=== PATIENT | male | born 2005 | race Caucasian/White ===

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

== ENCOUNTER 2024-04-12 12:21 | Emergency (ER) | payer BC ==
[~2024-04-12] VITALS: Ht 182.9 cm; Wt 99.8 kg
[~2024-04-12 12:21] MED LIST changes: +ACETAMINOPHEN500 MG PO; +IBU800 MG PO
[2024-04-12 12:39] VITALS: BP 158/94
[2024-04-12 13:55] LABS: BASOPHILS ABSOLUTE AUTO 0.04 K/mm3 (0.00-0.23); BASOPHILS PERCENT AUTO 1 % (0-2); EOSINOPHILS PERCENT AUTO 5 % (0-6); Hematocrit 47.8 % (37.0-53.0); Hemoglobin 17.1 g/dL (13.5-17.5); IMMATURE GRAN ABSOLUTE AUTO 0.02 K/mm3 (0.00-0.10); IMMATURE GRAN PERCENT AUTO 0 % (0-1); LYMPHOCYTES ABSOLUTE AUTO 1.55 K/mm3 (0.84-5.20); LYMPHOCYTES PERCENT AUTO 25 % (21-46); MONOCYTES ABSOLUTE AUTO 0.57 K/mm3 (0.16-1.47); MONOCYTES PERCENT AUTO 9 % (4-13); Mean Corpuscular HGB 30.1 pg (26.0-34.0); Mean Corpuscular HGB Conc 35.8 g/dL (31.5-36.5); Mean Corpuscular Volume 84 fL (80-100); Mean Platelet Volume 9.7 fL (9.1-12.4); NEUTROPHILS ABSOLUTE AUTO 3.69 K/mm3 (1.96-9.15); NEUTROPHILS PERCENT AUTO 60 % (41-73); Platelet Count 280 K/mm3 (150-400); RDW Coefficient Variation 12.3 % (11.7-14.2); RDW Standard Deviation 37.2 fL (35.1-46.3); Red Blood Cell Count 5.68 M/mm3 (4.30-5.90); White Blood Cell Count 6.17 K/mm3 (4.00-11.30)
[2024-04-12 14:00] LABS: Albumin, Blood 4.5 g/dL (3.4-5.0); Albumin/Globulin Ratio 1.3 (0.8-1.8); Bilirubin, Total 0.8 mg/dL (0.1-1.0); Bun/Creatinine Ratio 15.9 (12.0-20.0); Calcium, Blood 9.6 mg/dL (8.5-10.1); Creatinine, Blood 0.63 mg/dL (0.60-1.20); Globulin, Blood 3.5 g/dL (2.2-4.0); Potassium, Blood 4.2 mmol/L (3.5-5.5)
[2024-04-12] MEDS ORDERED: Fluorescein Sod 1MG Opth Strips RIGHTEYE ONE (14:25)
[2024-04-12] MEDS ORDERED: Proparacaine 0.5% Opth Soln 15 ML BTL RIGHTEYE ONE (14:30)
== END 2024-04-12 15:54 | disposition home or self-care (01) ==
LOC: ER 12:21
PROVIDERS: Emergency Medicine
DX: H11.31 Conjunctival hemorrhage, right eye (principal); F17.290 Nicotine dependence, other tobacco product, uncomplicated; Z59.89 Other problems related to housing and economic circumstances; W50.0XXA Accidental hit or strike by another person, initial encounter; Y93.72 Activity, wrestling
CPT/HCPCS: 70480; 80053; 85025; 99283-25; A9270; A9270-GY

== ENCOUNTER 2024-06-02 19:52 | Emergency (ER) | payer BC ==
[~2024-06-02] VITALS: Ht 182.9 cm; Wt 99.8 kg
[2024-06-02 20:10] VITALS: BP 149/86
[2024-06-02] MEDS ORDERED: Amoxicillin/Clavulanate K 875 MG Tab PO ONE (20:15)
[2024-06-02] MEDS ORDERED: AMOCLA875 PO (20:16)
== END 2024-06-02 20:26 | disposition home or self-care (01) ==
LOC: ER 19:52
DX: S61.250A Open bite of right index finger without damage to nail, initial encounter (principal); L08.9 Local infection of the skin and subcutaneous tissue, unspecified; S60.811A Abrasion of right wrist, initial encounter; F17.290 Nicotine dependence, other tobacco product, uncomplicated; W55.01XA Bitten by cat, initial encounter; W55.03XA Scratched by cat, initial encounter
CPT/HCPCS: 99283; A9270

== ENCOUNTER 2025-02-03 15:29 | Inpatient (IN) | payer OTHER, BC ==
[~2025-02-03] VITALS: Ht 185.4 cm; Wt 97.0 kg
[~2025-02-03 15:29] MED LIST changes: +AMOCLA875 PO
[2025-02-03] MEDS ORDERED: Ketorolac Tromethamine 15mg Vial IV ONE (16:05)
[2025-02-03] MEDS ORDERED: Ondansetron HCl 2 MG / ML 2ML Vial IV ONE (16:05)
[2025-02-03] MEDS ORDERED: HYDROmorphone HCl/Pf 1MG SYR IV ONE ×3 (16:05→20:00)
[2025-02-03 16:23] LABS: BASOPHILS ABSOLUTE AUTO 0.05 K/mm3 (0.00-0.23); BASOPHILS PERCENT AUTO 0 % (0-2); EOSINOPHILS ABSOLUTE AUTO 0.12 K/mm3 (0.00-0.68); EOSINOPHILS PERCENT AUTO 1 % (0-6); Hematocrit 46.9 % (37.0-53.0); Hemoglobin 16.9 g/dL (13.5-17.5); IMMATURE GRAN ABSOLUTE AUTO 0.06 K/mm3 (0.00-0.10); IMMATURE GRAN PERCENT AUTO 0 % (0-1); LYMPHOCYTES ABSOLUTE AUTO 1.60 K/mm3 (0.84-5.20); LYMPHOCYTES PERCENT AUTO 11 % (21-46); MONOCYTES ABSOLUTE AUTO 1.41 K/mm3 (0.16-1.47); MONOCYTES PERCENT AUTO 9 % (4-13); Mean Corpuscular HGB Conc 36.0 g/dL (31.5-36.5); Mean Corpuscular Volume 85 fL (80-100); NEUTROPHILS ABSOLUTE AUTO 11.96 K/mm3 (1.96-9.15); NEUTROPHILS PERCENT AUTO 79 % (41-73); NRBC ABSOLUTE 0.00 K/mm3 (0.00-0.02); NRBC Auto 0.0 /100 WBC (0.0-0.2); Platelet Count 259 K/mm3 (150-400); RDW Coefficient Variation 12.1 % (11.7-14.2); RDW Standard Deviation 37.1 fL (35.1-46.3)
[2025-02-03 16:56] LABS: C-REACTIVE PROTEIN, EXT RANGE 12.6 mg/dL (0.000-0.300)
[2025-02-03 16:59] LABS: Prothrombin Time Results 13.6 Sec (9.7-11.5)
[2025-02-03 17:02] LABS: Alanine Aminotransfer (ALT/SGP 61.0 U/L (12-78); Albumin, Blood 3.9 g/dL (3.4-5.0); Albumin/Globulin Ratio 1.0 (0.8-1.8); Anion Gap 9.0 mmol/L (3-11); Aspartate Aminotrans (AST/SGOT 20.0 U/L (12-37); Bilirubin, Total 1.4 mg/dL (0.1-1.0); Blood Urea Nitrogen 10.0 mg/dL (8-24); CO2, Blood 26.0 mmol/L (21-32); Calcium, Blood 9.6 mg/dL (8.5-10.1); Chloride, Blood 99.0 mmol/L (98-108); Creatinine, Blood 0.66 mg/dL (0.60-1.20); Globulin, Blood 3.9 g/dL (2.2-4.0); Glucose, Blood 112.0 mg/dL (70-99); Potassium, Blood 3.9 mmol/L (3.5-5.5); Sodium, Blood 130.0 mmol/L (136-145); Total Protein, Blood 7.8 g/dL (6.4-8.2)
[2025-02-03] MEDS ORDERED: NS 1,000 ML IV SCH ×2 (17:20→19:20)
[2025-02-03] MEDS ORDERED: Vancomycin (Pharmacy Consult) IV PRN (17:20)
[2025-02-03] MEDS ORDERED: Metoclopramide HCl 5MG / ML 2ML Vial IV PRN (19:20)
[2025-02-03] MEDS ORDERED: Ondansetron HCl 2 MG / ML 2ML Vial IV PRN (19:20)
[2025-02-03] MEDS ORDERED: Vancomycin (Pharmacy Consult) IV SCH (19:20)
[2025-02-03] MEDS ORDERED: OxyCODONE 5 mg/Acetamin 325 mg TABLET PO PRN (19:25)
[2025-02-03] MEDS ORDERED: HYDROmorphone HCl/Pf 1MG SYR IV PRN (19:25)
[2025-02-03] MEDS ORDERED: CeFAZolin Sodium 2,000 MG in NS 100 ML IV SCH (20:00)
[2025-02-03] MEDS ORDERED: DiphenhydrAMINE HCl 50 MG/ML 1ML Vial IV ONE (20:20)
[2025-02-03] MEDS ORDERED: FentaNYL Citrate 50 MCG/ML 2 ML Injection IV PRN (20:40)
[2025-02-03] MEDS ORDERED: Clindamycin 900mg in D5W 50ML 50 ML IV SCH (21:00)
[2025-02-03] MEDS ORDERED: Lactobacil 2-S.Thermo-Bifido 1 1 Cap PO SCH (21:00)
[2025-02-03 21:58] VITALS: BP 156/88
--- NOTE | 2025-02-03 22:15 | NUR ---
ARRIVAL TO SURGICAL UNIT ROOM 210 AT 2153. PT AMBULATORY FROM GURNEY TO BED. PT A/O X4 WITH FAMILY PRESENT AT BEDSIDE. PT REPORTS PAIN 9/10 TO LEFT THIGH AGGRAVATED BY MOVEMENT. ORIENTED TO ROOM, UNIT, AND CALL LIGHT. EDUCATION PROVIDED ON FALL PREVENTION, AND POLICIES. PT VAPES BUT DENIES IGNITION SOURCES ON PERSON. CALL LIGHT IN REACH.
[2025-02-03] MEDS ORDERED: PROBIOTIC1 EA13 PO (22:26)
--- NOTE | 2025-02-03 23:09 | NUR ---
TELEPHONE UPDATE ON PATIENT STATUS GIVEN TO DR. RIOS.
--- NOTE | 2025-02-04 | NUR ---
LLE MEASUREMENTS AT 2330. PROXIMAL THIGH: 22.25 INCHES, SUPERIOR KNEE: 19.5 INCHES.
[2025-02-04 04:38] VITALS: BP 139/76
[2025-02-04 05:08] LABS: Hematocrit 43.0 % (37.0-53.0); Hemoglobin 15.2 g/dL (13.5-17.5); Mean Corpuscular HGB Conc 35.3 g/dL (31.5-36.5); Mean Corpuscular Volume 87 fL (80-100); NRBC ABSOLUTE 0.02 K/mm3 (0.00-0.02); NRBC Auto 0.2 /100 WBC (0.0-0.2); Platelet Count 208 K/mm3 (150-400); RDW Coefficient Variation 12.3 % (11.7-14.2); RDW Standard Deviation 38.5 fL (35.1-46.3)
--- NOTE | 2025-02-04 05:23 | NUR ---
SHIFT SUMMARY NOC. PT A/OX4 AND MAKES NEEDS KNOWN. PT'S LEFT THIGH CONTINUES TO BE RED AND SWOLLEN, REDNESS REMAINS WITHIN MARKED MARGINS. PT MEDICATED FOR PAIN PER EMAR WITH REPORTED RELIEF OF SX. PT NPO SINCE 0000 ASIDE FROM SMALL SIP OF WATER WITH ORAL PAIN MEDICATION. FLUIDS AND ABX RUNNING PER EMAR. PT DENIES "HEAD SWELLING" AND DENIES ITCHING AFTER ADVERSE REACTION TO VANCO IN ER. MEASUREMENTS FOR LLE AT 0430: PROXIMAL THIGH 22.25 INCHES AND SUPERIOR KNEE AT 19.25 INCHES. PULSES AND SENSATION INTACT. CALL LIGHT IN REACH.
[2025-02-04 05:26] LABS: Prothrombin Time Results 13.7 Sec (9.7-11.5)
[2025-02-04 05:31] LABS: Anion Gap 9.0 mmol/L (3-11); Blood Urea Nitrogen 8.0 mg/dL (8-24); CO2, Blood 24.0 mmol/L (21-32); Calcium, Blood 8.4 mg/dL (8.5-10.1); Chloride, Blood 105.0 mmol/L (98-108); Creatinine, Blood 0.62 mg/dL (0.60-1.20); Glucose, Blood 100.0 mg/dL (70-99); Potassium, Blood 4.1 mmol/L (3.5-5.5); Sodium, Blood 134.0 mmol/L (136-145)
--- NOTE | 2025-02-04 07:57 | NUR ---
MEASUREMENT OF LEFT THIGH UPPER AREA 21 1/4 IN LOWER LINE 18 3/4 IN
[2025-02-04 08:09] VITALS: BP 151/86
--- NOTE | 2025-02-04 12:05 | NUR ---
THIGH MEASUREMENT UPPER AREA 21 1/2 LOWER AREA 19
[2025-02-04 12:15] VITALS: BP 143/70
[2025-02-04 14:30] VITALS: BP 144/76
--- NOTE | 2025-02-04 15:38 | NUR ---
THIGH MEASUREMENT UPPER THIGH 21 LOWER AREA 19
--- NOTE | 2025-02-04 15:53 | NUR ---
SHIFT SUMMARY PATIENT IS AOX4, IND IN ROOM. LEFT THIGH WITH OUTLINED REDDNESS AND SWELLING. MEASUREMENTS Q4 PER ORDER. WOUND SWAB SENT PER ORDER. NO SURGERY TODAY TOLERATING PO INTAKE. USES URINAL IND. MEDICATED FOR PAIN PER EMAR. VSS. ABLE TO MAKE NEEDS. KNOWN.
[2025-02-04] MEDS ORDERED: Cefepime HCl 2,000 MG in NS 100 ML IV SCH (18:00)
[2025-02-04 19:40] VITALS: BP 142/79
[2025-02-04] MEDS ORDERED: Morphine Sulfate 4 MG/1 ML Injection IV PRN (22:25)
--- NOTE | 2025-02-04 22:30 | NUR ---
THIGH MEASUREMENT FOR 1999 UPPER 21.75" LOWER 19"
--- NOTE | 2025-02-05 00:34 | NUR ---
THIGH MEASURMENT FOR 0000 UPPER 22" LOWER 19"
[2025-02-05 05:16] VITALS: BP 139/67
[2025-02-05 05:32] LABS: BASOPHILS ABSOLUTE AUTO 0.04 K/mm3 (0.00-0.23); BASOPHILS PERCENT AUTO 0 % (0-2); EOSINOPHILS ABSOLUTE AUTO 0.29 K/mm3 (0.00-0.68); EOSINOPHILS PERCENT AUTO 3 % (0-6); Hematocrit 42.4 % (37.0-53.0); Hemoglobin 15.2 g/dL (13.5-17.5); IMMATURE GRAN ABSOLUTE AUTO 0.04 K/mm3 (0.00-0.10); IMMATURE GRAN PERCENT AUTO 0 % (0-1); LYMPHOCYTES ABSOLUTE AUTO 2.21 K/mm3 (0.84-5.20); LYMPHOCYTES PERCENT AUTO 23 % (21-46); MONOCYTES ABSOLUTE AUTO 1.12 K/mm3 (0.16-1.47); MONOCYTES PERCENT AUTO 12 % (4-13); Mean Corpuscular HGB Conc 35.8 g/dL (31.5-36.5); Mean Corpuscular Volume 86 fL (80-100); NEUTROPHILS ABSOLUTE AUTO 5.80 K/mm3 (1.96-9.15); NEUTROPHILS PERCENT AUTO 61 % (41-73); NRBC ABSOLUTE 0.00 K/mm3 (0.00-0.02); NRBC Auto 0.0 /100 WBC (0.0-0.2); Platelet Count 237 K/mm3 (150-400); RDW Coefficient Variation 12.2 % (11.7-14.2); RDW Standard Deviation 38.2 fL (35.1-46.3)
--- NOTE | 2025-02-05 05:38 | NUR ---
THIGH MEASURMENT FOR 0400 UPPER 21.75" LOWER 19"
--- NOTE | 2025-02-05 05:40 | NUR ---
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 PT QUITE PAINFUL WITH AMBULATION, MINIMAL PAIN RELIEF WITH PO PERCOCET AND IV FENTANYL. ORDER OBTAINED FROM HOSPITALIST FOR IV MORPHINE AND THAT HAS DONE MUCH BETTER MANAGING PAIN, BRINGING PAIN LEVELS FROM 8/10 DOWN TO 2/10 FAIRLY QUICKLY. L INNER THIGH WITH SWELLING, MEASURING 21.5-22" ON THE UPPER SECTION AND 19" ON LOWER. AREA AROUND SWELLING LIGHT PINK WHICH IS MUCH IMPROVED PER PT AND DAY SHIFT RN. CONTINUING IV ABX, BLOOD CULTURES PENDING. VSS, WCTM.
[2025-02-05 06:14] LABS: Alanine Aminotransfer (ALT/SGP 37.0 U/L (12-78); Albumin, Blood 3.1 g/dL (3.4-5.0); Albumin/Globulin Ratio 0.8 (0.8-1.8); Anion Gap 9.0 mmol/L (3-11); Aspartate Aminotrans (AST/SGOT 17.0 U/L (12-37); Bilirubin, Total 0.8 mg/dL (0.1-1.0); Blood Urea Nitrogen 8.0 mg/dL (8-24); CO2, Blood 27.0 mmol/L (21-32); Calcium, Blood 8.7 mg/dL (8.5-10.1); Chloride, Blood 101.0 mmol/L (98-108); Creatinine, Blood 0.7 mg/dL (0.60-1.20); Globulin, Blood 3.8 g/dL (2.2-4.0); Glucose, Blood 94.0 mg/dL (70-99); Potassium, Blood 4.2 mmol/L (3.5-5.5); Sodium, Blood 133.0 mmol/L (136-145); Total Protein, Blood 6.9 g/dL (6.4-8.2)
[2025-02-05 07:24] VITALS: BP 148/70
--- NOTE | 2025-02-05 09:01 | NUR ---
LEG MEASUEREMENTS IN CIRCUMFERENCE UPPER SECTION: 21.75 LOWER SECTION: 19.75
--- NOTE | 2025-02-05 12:14 | NUR ---
LEG MEASUREMENT UPPER MEASUREMENT:23IN LOWER MEASUREMENT: 20IN
[2025-02-05] MEDS ORDERED: OxyCODONE 5 mg/Acetamin 325 mg TABLET PO PRN (14:15)
[2025-02-05 15:11] VITALS: BP 140/79
--- NOTE | 2025-02-05 15:57 | NUR ---
LEG MEASUREMENT UPPER MEASUREMENT:22.5IN LOWER MEASUREMENT: 19.75IN
--- NOTE | 2025-02-05 18:16 | NUR ---
SUMMARY NO ACUTE CHANGES THIS SHIFT. Q4 LEG CIRCUMFERENCE CHECKS MARGINALLY UNCHANGED BUT A LARGE DECREASE IN VISIBLE REDNESS NOTED TO L LEG - DRESSING CHANGED TI ALLOW FOR BETTER VISUALIZATION WELL. TOWARDS END OF SHIFT, ICE APPLIED AND TOMY WRAP APPLIED FOR PRESSURE - PER DR RIOS - PT STATES ICE DIDN'T HEP BUT THE TOMY WRAP HAS ALONGSIDE CONSISTENT PAIN MEDICATION ADMINISTRATION. IV FLUIDS INFUSING T/O SHIFT. PLAN FOR NPO TONIGHT JUST IN CASE PT NEEDS NEEDLE ASPIRATION TOMORROW - PT AWARE - PLAN MADE BY DR RIOS. OTHERWISE, PT TOELRATING PO INTAKE WELL. VSS. TALKING WITH FAMILY T/O SHIFT IN ROOM.
[2025-02-05 19:22] VITALS: BP 120/79
[2025-02-05] MEDS ORDERED: NS 250 ML IV PRN (19:35)
--- NOTE | 2025-02-06 02:19 | NUR ---
THIGH MEASUREMENT FOR 0000 UPPER 22.5" LOWER 19.5"
--- NOTE | 2025-02-06 02:19 | NUR ---
THIGH MEASUREMENT FOR 1999 UPPER 22" LOWER 19.5"
--- NOTE | 2025-02-06 06:09 | NUR ---
THIGH MEASUREMENT FOR 0400 UPPER 22" LOWER 19.75"
[2025-02-06 06:14] VITALS: BP 120/73
[2025-02-06 06:41] LABS: BASOPHILS ABSOLUTE AUTO 0.04 K/mm3 (0.00-0.23); BASOPHILS PERCENT AUTO 1 % (0-2); EOSINOPHILS ABSOLUTE AUTO 0.45 K/mm3 (0.00-0.68); EOSINOPHILS PERCENT AUTO 5 % (0-6); Hematocrit 41.7 % (37.0-53.0); Hemoglobin 15.0 g/dL (13.5-17.5); IMMATURE GRAN ABSOLUTE AUTO 0.02 K/mm3 (0.00-0.10); IMMATURE GRAN PERCENT AUTO 0 % (0-1); LYMPHOCYTES ABSOLUTE AUTO 1.78 K/mm3 (0.84-5.20); LYMPHOCYTES PERCENT AUTO 22 % (21-46); MONOCYTES ABSOLUTE AUTO 0.99 K/mm3 (0.16-1.47); MONOCYTES PERCENT AUTO 12 % (4-13); Mean Corpuscular HGB Conc 36.0 g/dL (31.5-36.5); Mean Corpuscular Volume 86 fL (80-100); NEUTROPHILS ABSOLUTE AUTO 4.98 K/mm3 (1.96-9.15); NEUTROPHILS PERCENT AUTO 60 % (41-73); NRBC ABSOLUTE 0.00 K/mm3 (0.00-0.02); NRBC Auto 0.0 /100 WBC (0.0-0.2); Platelet Count 275 K/mm3 (150-400); RDW Coefficient Variation 12.0 % (11.7-14.2); RDW Standard Deviation 37.9 fL (35.1-46.3)
--- NOTE | 2025-02-06 06:44 | NUR ---
SHIFT SUMMARY AT START OF SHIFT, PT SITTING UP IN BED WITH FIANCE AND MOM VISITING. PT FIANCE STAYING THE NIGHT. PT PLEASANT AND COOPERATIVE WITH CARE. MEDICATED PER EMAR FOR PAIN PRN THROUGHOUT SHIFT. PT THIGH CIRCUMFERENCE MEASUREMENT ALTERED BETWEEN 22 INCHES AND 22.5 INCHES AT TOP AND 19.5 INCHES AND 19.75 INCHES AT BOTTOM.
[2025-02-06 07:11] LABS: Anion Gap 9.0 mmol/L (3-11); Blood Urea Nitrogen 8.0 mg/dL (8-24); CO2, Blood 26.0 mmol/L (21-32); Calcium, Blood 8.8 mg/dL (8.5-10.1); Chloride, Blood 101.0 mmol/L (98-108); Creatinine, Blood 0.68 mg/dL (0.60-1.20); Glucose, Blood 98.0 mg/dL (70-99); Potassium, Blood 4.0 mmol/L (3.5-5.5); Sodium, Blood 132.0 mmol/L (136-145)
[2025-02-06 07:22] VITALS: BP 141/74
--- NOTE | 2025-02-06 12:30 | NUR ---
MEASUREMENT FOR 0800 UPPER THIGH: 22" LOWER THIGH 19.5"
--- NOTE | 2025-02-06 12:31 | NUR ---
MEASUREMENT FOR 1200 UPPER THIGH: 22.5" LOWER THIGH 19.25"
[2025-02-06 15:07] VITALS: BP 134/79
--- NOTE | 2025-02-06 17:47 | NUR ---
SUMMARY NO ACUTE CHANGES THIS SHIFT. VSS. CELLULITIS TO L EG DECREASING IN REDNESS/PAIN SEVERITY. DECISION TO HOLD OFF ON NEEDLE ASPIRATION AT THIS TIME, WILL REASSESS FOR NEED. MEASUREMENTS OF THIGH CHANGED FROM Q4HRS TO QSHIFT. PT TOLERATING PO INTAKE WELL. AMBULATING. VOIDING WELL. USING CALL LIGHT APPROPRIATELY.
[2025-02-06 19:20] VITALS: BP 151/70
--- NOTE | 2025-02-06 22:00 | NUR ---
MEASUREMENTS UPPER THIGH 21.5 LOWER THIGH 18.5
[2025-02-07 01:53] VITALS: BP 136/74
[2025-02-07 07:34] LABS: BASOPHILS ABSOLUTE AUTO 0.04 K/mm3 (0.00-0.23); BASOPHILS PERCENT AUTO 1 % (0-2); EOSINOPHILS ABSOLUTE AUTO 0.47 K/mm3 (0.00-0.68); EOSINOPHILS PERCENT AUTO 8 % (0-6); Hematocrit 41.8 % (37.0-53.0); Hemoglobin 15.0 g/dL (13.5-17.5); IMMATURE GRAN ABSOLUTE AUTO 0.02 K/mm3 (0.00-0.10); IMMATURE GRAN PERCENT AUTO 0 % (0-1); LYMPHOCYTES ABSOLUTE AUTO 1.73 K/mm3 (0.84-5.20); LYMPHOCYTES PERCENT AUTO 30 % (21-46); MONOCYTES ABSOLUTE AUTO 0.73 K/mm3 (0.16-1.47); MONOCYTES PERCENT AUTO 13 % (4-13); Mean Corpuscular HGB Conc 35.9 g/dL (31.5-36.5); Mean Corpuscular Volume 86 fL (80-100); NEUTROPHILS ABSOLUTE AUTO 2.72 K/mm3 (1.96-9.15); NEUTROPHILS PERCENT AUTO 48 % (41-73); NRBC ABSOLUTE 0.00 K/mm3 (0.00-0.02); NRBC Auto 0.0 /100 WBC (0.0-0.2); Platelet Count 276 K/mm3 (150-400); RDW Coefficient Variation 11.9 % (11.7-14.2); RDW Standard Deviation 37.4 fL (35.1-46.3)
[2025-02-07 07:46] VITALS: BP 118/58
[2025-02-07 07:49] LABS: Anion Gap 9.0 mmol/L (3-11); Blood Urea Nitrogen 9.0 mg/dL (8-24); CO2, Blood 28.0 mmol/L (21-32); Calcium, Blood 9.1 mg/dL (8.5-10.1); Chloride, Blood 102.0 mmol/L (98-108); Creatinine, Blood 0.69 mg/dL (0.60-1.20); Glucose, Blood 100.0 mg/dL (70-99); Potassium, Blood 4.1 mmol/L (3.5-5.5); Sodium, Blood 135.0 mmol/L (136-145)
--- NOTE | 2025-02-07 09:20 | NUR ---
MEASUREMENT FOR 0900 UPPER 21.75" LOWER 19.25"
[2025-02-07 14:31] VITALS: BP 141/78
--- NOTE | 2025-02-07 16:24 | NUR ---
SHIFT SUMMARY NO ACUTE EVENTS THIS SHIFT. PATIENT ALERT AND ORIENTED X4. COMMUNICATING NEEDS EFFECTIVELY. FIANCE AT BEDSIDE T/O DAY. VSS. CELLULITIS TO L LEG. MEASUREMENTS OBTAINED THIS MORNING (SEE NOTE). MANAGING PAIN PER EMAR W/ REPORTED RELIEF. IV ABX CHANGED TO PO ABX. PHYSICAL THERAPY EVAL COMPLETED TODAY - AMBULATING W/ CRUTCHES AND SBA. TOLERATING PO INTAKE. VOIDING. X1 BM TODAY. CALL LIGHT IN REACH.
[2025-02-07 18:27] VITALS: BP 137/76
[2025-02-08 04:15] VITALS: BP 126/71
[2025-02-08 04:48] LABS: BASOPHILS ABSOLUTE AUTO 0.03 K/mm3 (0.00-0.23); BASOPHILS PERCENT AUTO 1 % (0-2); EOSINOPHILS ABSOLUTE AUTO 0.49 K/mm3 (0.00-0.68); EOSINOPHILS PERCENT AUTO 9 % (0-6); Hematocrit 42.5 % (37.0-53.0); Hemoglobin 15.2 g/dL (13.5-17.5); IMMATURE GRAN ABSOLUTE AUTO 0.01 K/mm3 (0.00-0.10); IMMATURE GRAN PERCENT AUTO 0 % (0-1); LYMPHOCYTES ABSOLUTE AUTO 2.27 K/mm3 (0.84-5.20); LYMPHOCYTES PERCENT AUTO 41 % (21-46); MONOCYTES ABSOLUTE AUTO 0.64 K/mm3 (0.16-1.47); MONOCYTES PERCENT AUTO 11 % (4-13); Mean Corpuscular HGB Conc 35.8 g/dL (31.5-36.5); Mean Corpuscular Volume 84 fL (80-100); NEUTROPHILS ABSOLUTE AUTO 2.15 K/mm3 (1.96-9.15); NEUTROPHILS PERCENT AUTO 39 % (41-73); NRBC ABSOLUTE 0.00 K/mm3 (0.00-0.02); NRBC Auto 0.0 /100 WBC (0.0-0.2); Platelet Count 308 K/mm3 (150-400); RDW Coefficient Variation 11.8 % (11.7-14.2); RDW Standard Deviation 35.8 fL (35.1-46.3)
--- NOTE | 2025-02-08 05:00 | NUR ---
SHIFT SUMMARY NO ACUTE CHANGES T/O SHIFT. PT IS A/OX4. PAIN MANAGED WITH PO PER EMAR. PT IS VOIDING AND AMBULATING. IV PATENT AND SL. IS ARNALDO PO INTAKE, INCLUDING ABX. PT EAGER TO DISHCARG. IS A/OX4 WITH VSS. HAS CALL LIGHT IN REACH AND ABLE TO MAKE NEEDS KNOWN. S/O ATTENTIVE AT BEDSIDE. WILL GIVE REPORT TO ONCOMING RN.
[2025-02-08 08:12] VITALS: BP 147/96
--- NOTE | 2025-02-08 11:08 | NUR ---
MEASUREMENTS UPPER - 22" LOWER - 19.5"
[2025-02-08] MEDS ORDERED: Cleocin HCl150 MG PO (12:32)
[2025-02-08] MEDS ORDERED: DOCU100 PO (12:32)
[2025-02-08] MEDS ORDERED: OXYC10ER PO (12:33)
[2025-02-08] MEDS ORDERED: Percocet 5-3251 EACH PO (12:35)
[2025-02-08] MEDS ORDERED: SENN187 PO (12:36)
[2025-02-08] MEDS ORDERED: METO10 PO (12:36)
--- NOTE | 2025-02-08 13:05 | NUR ---
DISCHARGE SUMMARY ADMITTED ON 02/03 FOR CELLULITIS OF L THIGH. A&O x4, VSS, HRR. TOLERATING REGULAR DIET & PO ABX WELL. AMBULATES IND w/CRUTCHES. PAIN MANAGED w/PERSCRIBED THERAPY. SWELLING DECREASING TO L THIGH, SEE MEASUREMENTS. VOIDING. D/C HOME ORDERED. WRITTEN & VERBAL EDUCATION PROVIDED. PT & FAMILY STATE UNDERSTANDING. WRITTEN SCRIPT GIVEN. OTHER PERSCRIBED MEDS FAXED TO PHARMACY. PT DECLINED WC TRANSFER, AMBULATED TO PERSONAL VEHICLE VIA CRUTCHES, FAMILY w/PT. PERSONAL BELONGINGS w/FAMILY.
[2025-02-08 20:33] LABS: VON WILLEBRAND FACTOR, ACT RCF 294 % (51-215); VON WILLEBRAND FACTOR, ANTIGEN 225 % (52-214)
== END 2025-02-08 12:56 | disposition home or self-care (01) | DRG 872 ==
LOC: ER 15:29 → SURS 19:17
PROVIDERS: Nurse Practitioner Acute Care; Physician Assistant; Student in an Organized Health Care Education/Training Program; ADMIT Internal Medicine
DX: A41.9 Sepsis, unspecified organism (principal); S77.12XA Crushing injury of left thigh, initial encounter; L03.116 Cellulitis of left lower limb; E87.1 Hypo-osmolality and hyponatremia; F17.290 Nicotine dependence, other tobacco product, uncomplicated; E86.1 Hypovolemia; Z88.1 Allergy status to other antibiotic agents; V86.55XA Driver of 3- or 4- wheeled all-terrain vehicle (ATV) injured in nontraffic accident, initial encounter
CPT/HCPCS: 36415; 73701; 80048; 80053; 82550; 83605; 85025; 85027; 85240; 85245; 85246; 85610; 85651; 85730; 86140; 87040; 87070; 87075; 87077; 87205; 90715; 94762; 96365-59; 96375; 96376; 97161; 97530; 99284-25; A9270; J0690; J0692; J1171; J1200; J1885; J2270; J2405; J3010; J3373; J7030; J7040; J7050; Q9967